=== PATIENT | male | born 1970 | race Caucasian/White ===

== ENCOUNTER 2020-05-17 15:49 | Outpatient (REF) | payer SELFPAY ==
[2020-05-17 18:32] LABS: Syphilis Screen Nonreactive (Nonreactive)
[2020-05-18 04:32] LABS: HIV AB/AG Nonreactive (Nonreactive); HIV Num 1 0.08 S/CO (0.00-0.99)
[2020-05-18 18:28] LABS: Herpes Simplex Type 2 IgG <0.90 index
[2020-05-22 22:37] LABS: Chlamydia Pneumoniae IgA <1:16 titer (<1:16); Chlamydia Pneumoniae IgM <1:10 titer (<1:10); Chlamydia Psittaci IgA <1:16 titer (<1:16); Chlamydia Psittaci IgG <1:64 titer (<1:64); Chlamydia Psittaci IgM <1:10 titer (<1:10); Chlamydia Trachomatis IgA <1:16 titer (<1:16); Chlamydia Trachomatis IgG <1:64 titer (<1:64); Chlamydia Trachomatis IgM <1:10 titer (<1:10)
== END 2020-05-17 15:50 | disposition home or self-care (01) ==
LOC: HO.LAB 15:49
PROVIDERS: PCP Internal Medicine Medical Oncology; Visit Provider Internal Medicine Medical Oncology
DX: Z11.3 Encounter for screening for infections with a predominantly sexual mode of transmission (principal)
CPT/HCPCS: 86631; 86632; 86695; 86696; 86780; 87389

== ENCOUNTER 2021-12-29 08:23 | Outpatient (REF) | payer BC, SELFPAY ==
[2021-12-29 08:34] LABS: MANUAL DIFF FLAG NO
[2021-12-29 08:44] LABS: Basophils Absolute Auto 0.1 X10*3/uL (0.0-0.2); Basophils Percent Auto 1.2 % (0-2); Eosinophils Absolute Auto 0.1 X10*3/uL (0.0-0.4); Eosinophils Percent Auto 2.4 % (0-4); Hematocrit 39.7 % (42.0-52.0); Hemoglobin 13.6 g/dl (14.0-18.0); Imm Gran Abs Auto 0.01 X10*3/uL (0.00-0.03); Imm Gran Pct Auto 0.2 % (0.0-0.4); Lymphocytes Absolute Auto 1.6 X10*3/uL (1.2-4.9); Lymphocytes Percent Auto 30.8 % (20-40); Mean Corpuscular HGB Conc 34.3 g/dl (31.0-36.0); Mean Corpuscular Hemoglobin 31.1 pg (27.0-33.0); Mean Corpuscular Volume 90.8 fL (80.0-98.0); Mean Platelet Volume 8.8 fL (9.4-12.4); Monocytes Absolute Auto 0.4 X10*3/uL (0.1-1.2); Neutrophils Absolute Auto 2.9 x10*3/uL (2.0-8.3); Neutrophils Percent Auto 57.4 % (45-73); Platelet Count 213 X10*3/uL (160-400); Red Blood Count 4.37 X10*6/uL (4.60-5.80); Red Cell Distribution Width 12.5 % (11.0-16.0)
[2021-12-29 09:14] LABS: Alanine Aminotransferase 32 U/L (0-40); Albumin Level 4.8 g/dL (3.5-5.0); Alkaline Phosphatase 71 U/L (39-117); Anion Gap 15 (12-20); Aspartate Amino Transferase 29 U/L (5-37); Bilirubin Total 0.6 mg/dL (0.0-1.0); Blood Urea Nitrogen 11 mg/dL (9-16); Calcium 9.3 mg/dL (8.4-10.2); Carbon Dioxide 28 mmol/L (22-29); Chloride 96 mmol/L (96-108); Cholesterol 203 mg/dL; Estimated Glomerular Filt Rate > 60; Glucose Fasting 88 mg/dL (60-99); HDL Cholesterol 59 mg/dL; LDL Cholesterol Calculated 122 mg/dl; Potassium 4.9 mmol/L (3.3-5.1); Sodium 134 mmol/L (135-145); Total Protein 7.5 g/dL (6.5-8.0); Triglycerides 113 mg/dL
== END 2021-12-29 08:24 | disposition home or self-care (01) ==
LOC: HO.LAB 08:23
PROVIDERS: PCP Internal Medicine Medical Oncology; Visit Provider Internal Medicine Medical Oncology
DX: E66.3 Overweight (principal); E78.5 Hyperlipidemia, unspecified
CPT/HCPCS: 36415; 80053; 80061; 85025

== ENCOUNTER 2022-04-05 09:18 | Outpatient (REF) | payer BC, SELFPAY ==
--- NOTE | ~2022-04-05 | US_ITS ---
EXAMINATION: US ABDOMEN COMPLETE CLINICAL INFORMATION: Calculus of gallbladder with chronic cholecystitis without obstruction. COMPARISON: X-ray 08/04/2014. Ultrasound abdomen 06/08/2014 and 12/27/2006. TECHNIQUE: Real-time imaging of the abdominal viscera. FINDINGS: PANCREAS: Is unremarkable but the tail is obscured by bowel gas ABDOMINAL AORTA: The proximal, mid, and distal segments are normal in caliber. INFERIOR VENA CAVA: Visualized portions are normal. LIVER: Normal. The liver is normal in size. The liver contour is normal. Parenchymal echogenicity is normal. No focal hepatic lesion. There is no intrahepatic biliary duct dilatation seen. GALLBLADDER: Normal. The gallbladder is physiologically distended without evidence of stones, sludge, polyps, wall thickening or pericholecystic fluid. COMMON BILE DUCT: Normal in caliber measuring 0.5 cm in diameter. RIGHT KIDNEY: Normal. No hydronephrosis. No renal calculi or focal parenchymal lesions. The kidney measures 11.7 cm in maximum dimension. LEFT KIDNEY: Normal. No hydronephrosis. No renal calculi or focal parenchymal lesions. The kidney measures 13.2 cm in maximum dimension. SPLEEN: Not seen FREE FLUID: None. US/US abdomen complete IMPRESSION: No abnormal findings. Nonvisualization of spleen
== END 2022-04-05 09:19 | disposition home or self-care (01) ==
LOC: HO.US 09:18
PROVIDERS: Visit Provider Internal Medicine Medical Oncology
DX: K80.10 Calculus of gallbladder with chronic cholecystitis without obstruction (principal)
CPT/HCPCS: 76700

== ENCOUNTER 2022-06-30 07:44 | Day surgery (SDC) | payer BC, SELFPAY ==
[2022-06-30 08:11] VITALS: BMI 26.5
[2022-06-30 08:15] VITALS: BP 159/104; PULSE 68; RESP 16; TEMP 36.6; O2SAT 98
--- NOTE | 2022-06-30 08:26 | P.CONAN_ITS ---
HPI - Anesthesia Eval Consult details Narrative: 51 yo male patient for colonoscopy FOR[facility]LY [facility] Past Medical History Medical History Degenerative disc disease, lumbar Hiatal hernia HTN (hypertension) Hyperlipidemia Family History Family history of problems with anesthesia: No Surgical History Surgical History History of back surgery History of Problems with Anesthesia: No Social History Social History (Updated 06/30/22 @ 09:18 by Estrella Kemp MD) Alcohol intake: current Patient Tobacco Use Status: Never used Tobacco Use of substances other than those prescribed or required for medical reasons: Yes Substance Use Type: Marijuana Last Used Substance: Hours (ago) Are you DNR?: No Advance Directives: No Advance Directives Information Provided: Yes Meds Allergies Allergy/AdvReac Type Severity Reaction Status Date / Time No Known Allergies Allergy Unverified 02/05/20 14:51 [No Known Allergies*] Active Medications: Current Medications Lactated Ringer's (Lr) 1,000 mls @ 50 mls/hr IVCONT .Q20H [facility] Home Medications Medication Instructions Recorded Confirmed Last Taken Type hydrochlorothiazide 25 mg tablet 1 tab PO QAM 06/29/22 06/29/22 Unknown History metoprolol tartrate 25 mg tablet 1 tab PO BID 06/29/22 06/29/22 06/30/22 History Exam Exam Date and Time: June 30, 2022 0826 Height,Weight and Vital Signs: Height 5 ft 10 in Weight 83.915 kg Last Vital Signs Temp 97.9 F 06/30/22 08:15 Pulse 68 06/30/22 08:15 Resp 16 06/30/22 08:15 BP 159/104 H 06/30/22 08:15 Pulse Ox 98 06/30/22 08:15 O2 Del Method 06/30/22 08:15 Airway Mallampati Class: II TM Dist: >3cm Neck ROM: Full Loose/Missing/Broken Teeth: Yes (Missing 1 tooth top right) Heart: RRR Lungs: CTAB Assessment and Plan Assessment Anesthesia Assessment: Anesthesia Plan Discussed and Chart Reviewed Final Anesthetic Review Family History of Problems with Anesthesia: No History of Problems with Anesthesia: No NPO: Yes ASA Class: II Final Preanesthetic Review: No Changes in Pt Med Stat, Meds/Allgs Chart Reviewed, Consent Obtained/Reviewed and Anes Risks/Benef Reviewed Patient Risk: Low Procedure Risk: Low Assessment/Block/Sedation in SS: Assess/Block/Sedation-SS Anesthetic Plan Anesthetic Plan: MAC: Disposition: Standard PACU
[2022-06-30] MEDS: Lactated Ringers 1,000 ML 50 ML IVCONT (08:28)
--- NOTE | 2022-06-30 09:24 | MHC.SHP ---
Pre-Procedural Eval Section A Date of Service: 06/30/22 Section B Chief Complaint: screening Details of Present Illness: see H&P no changes Relevant Family History (Specify if Yes): No Relevant Social History: None Present Medications: see Short Stay Collaborative assessment Medical History: No relevant PMH History of Previous Operations: No relevant previous surgery Allergies: Allergies Allergy/AdvReac Type Severity Reaction Status Date / Time No Known Allergies Allergy Unverified 02/05/20 14:51 [No Known Allergies*] Review of Systems Sugical H&P ROS: Negative: Constitution, Cardiovascular, Respiratory, Neurological, Psychiatric, Hem-Onc, Allergic/Immunologic, Gastrointestinal, Genitourinary, Musculoskeletal, Integumentary, Endocrine and Eyes/Ears/Nose/Throat Exam Surgical H&P Exam: Normal: HEENT, Normal: Heart, Normal: Lungs, Normal: Extremities, Normal: Abdomen, Normal: Skin and Normal: Neurological Plan Diagnosis/Plan: Unchanged I have reviewed the history and physical and performed a pertinent physical examination on my patient. No changes have occurred unless specified. Time Spent With Patient Time: Total time managing care of this patient today ____ minutes.
--- NOTE | 2022-06-30 09:44 | PM.OP ---
Brief Operative Note Date of Service: 06/30/22 Pre-op diagnosis: screening Post-op diagnosis: same Procedure: colonosocpy Surgeon: Blaise Moses Anesthesia: MAC Was an Senior Enterprise Architect used for this Procedure?: No Estimated blood loss (mL): 2 Pathology: other Condition: stable Disposition: PACU
[2022-06-30 09:49] VITALS: BP 117/75; PULSE 61; RESP 18; TEMP 36.2; O2SAT 99
[2022-06-30 10:04] VITALS: BP 131/86; PULSE 61; RESP 18; TEMP 36.2; O2SAT 98
--- NOTE | 2022-06-30 10:32 | OP_ITS ---
SURGEON: Blaise Moses MD INDICATIONS: Colon cancer screening. PREOPERATIVE DIAGNOSIS: POSTOPERATIVE DIAGNOSIS: PROCEDURE PERFORMED: Colonoscopy to the terminal ileum with biopsy. ESTIMATED BLOOD LOSS: COMPLICATIONS: ANESTHESIA: Monitored anesthesia care. ASSISTANTS: SPECIMENS: PROCEDURE DESCRIPTION: The procedure was performed on 06/30/2022. A history and physical performed. Risks and benefits of the procedure were explained to the patient. Informed consent was obtained. The patient was placed in the left lateral decubitus position. A digital rectal exam was performed and was found to be normal. The Olympus pediatric video colonoscope was introduced into the rectum and advanced to the cecum without difficulty. The cecum was identified by transillumination, palpation, and identification of ileocecal valve. Examination was performed. The scope was removed. He tolerated the procedure well and returned to recovery area in stable condition. FINDINGS: The terminal ileum was examined and appeared normal. The visualized colonic mucosa was normal. The quality of prep was good. At 45 cm from the anal verge was a less than 5 mm sessile polyp, which was removed with biopsy forceps. No other polyps were identified. Retroflexed examination showed hypertrophic anal papillae. IMPRESSION: Colon polyp. RECOMMENDATION: Follow up the biopsy results. MD KATIA Alvarez/TERI / [id number]
== END 2022-06-30 10:29 | disposition home or self-care (01) ==
PROVIDERS: PCP Internal Medicine Medical Oncology; Visit Provider Internal Medicine Gastroenterology
PROC: 0DJD8ZZ Inspection of Lower Intestinal Tract, Via Natural or Artificial Opening Endoscopic (ICD-10-PCS; CPT 45378; principal; 2022-06-30 09:00)
DX: Z12.11 Encounter for screening for malignant neoplasm of colon (principal); K63.5 Polyp of colon; K62.89 Other specified diseases of anus and rectum; K44.9 Diaphragmatic hernia without obstruction or gangrene; I10 Essential (primary) hypertension; E78.5 Hyperlipidemia, unspecified; Z79.899 Other long term (current) drug therapy
CPT/HCPCS: 45380; 88305

== ENCOUNTER 2022-09-13 08:26 | Outpatient (REF) | payer BC, SELFPAY | END 2022-09-13 08:27 | disposition home or self-care (01) | LOC: HO.LNP 08:26 | PROVIDERS: PCP Internal Medicine Medical Oncology; Referring Provider Internal Medicine Medical Oncology; Visit Provider Surgery | DX: L72.3 Sebaceous cyst (principal); L08.9 Local infection of the skin and subcutaneous tissue, unspecified; Z79.899 Other long term (current) drug therapy | CPT/HCPCS: 10060; 10061; 87070; 87077; 87186; 87205 ==

== ENCOUNTER → 2022-09-14 08:52 | Outpatient (BNVA) | payer BC, SELFPAY | PROVIDERS: PCP Internal Medicine Medical Oncology; Visit Provider Surgery | DX: Z13.89 Encounter for screening for other disorder (principal) ==

== ENCOUNTER → 2022-09-15 08:56 | Outpatient (BNVA) | payer BC, SELFPAY | PROVIDERS: PCP Internal Medicine Medical Oncology; Visit Provider Surgery | DX: Z13.89 Encounter for screening for other disorder (principal) ==

== ENCOUNTER → 2022-09-18 08:59 | Outpatient (BNVA) | payer BC, SELFPAY | PROVIDERS: PCP Internal Medicine Medical Oncology; Visit Provider Surgery | DX: Z13.89 Encounter for screening for other disorder (principal) ==

== ENCOUNTER → 2022-09-25 12:57 | Outpatient (BNVA) | payer BC, SELFPAY | PROVIDERS: PCP Internal Medicine Medical Oncology; Visit Provider Surgery ==

== ENCOUNTER 2022-10-05 07:02 | Outpatient (REF) | payer BC, SELFPAY ==
[2022-10-05 07:13] LABS: MANUAL DIFF FLAG NO
[2022-10-05 07:23] LABS: Basophils Percent Auto 0.8 % (0-2); Eosinophils Absolute Auto 0.2 X10*3/uL (0.0-0.4); Eosinophils Percent Auto 2.8 % (0-4); Hematocrit 41.3 % (42.0-52.0); Hemoglobin 14.2 g/dl (14.0-18.0); Imm Gran Abs Auto 0.01 X10*3/uL (0.00-0.03); Imm Gran Pct Auto 0.2 % (0.0-0.4); Lymphocytes Absolute Auto 1.4 X10*3/uL (1.2-4.9); Lymphocytes Percent Auto 26.9 % (20-40); Mean Corpuscular HGB Conc 34.4 g/dl (31.0-36.0); Mean Corpuscular Hemoglobin 30.9 pg (27.0-33.0); Mean Platelet Volume 8.7 fL (9.4-12.4); Monocytes Absolute Auto 0.5 X10*3/uL (0.1-1.2); Monocytes Percent Auto 9.7 % (2-11); Neutrophils Absolute Auto 3.1 x10*3/uL (2.0-8.3); Neutrophils Percent Auto 59.6 % (45-73); Platelet Count 239 X10*3/uL (160-400); Red Blood Count 4.59 X10*6/uL (4.60-5.80); Red Cell Distribution Width 12.1 % (11.0-16.0); White Blood Count 5.3 X10*3/uL (4.8-10.8)
[2022-10-05 07:56] LABS: Alanine Aminotransferase 37 U/L (0-40); Albumin Level 4.6 g/dL (3.5-5.0); Alkaline Phosphatase 81 U/L (39-117); Anion Gap 14 (12-20); Aspartate Amino Transferase 35 U/L (5-37); Bilirubin Total 0.5 mg/dL (0.0-1.0); Blood Urea Nitrogen 8 mg/dL (9-16); Calcium 9.3 mg/dL (8.4-10.2); Carbon Dioxide 30 mmol/L (22-29); Chloride 95 mmol/L (96-108); Cholesterol 194 mg/dL; Estimated Glomerular Filt Rate > 60; Glucose Fasting 92 mg/dL (60-99); HDL Cholesterol 55 mg/dL; LDL Cholesterol Calculated 102 mg/dl; Potassium 4.5 mmol/L (3.3-5.1); Sodium 134 mmol/L (135-145); Total Protein 7.3 g/dL (6.5-8.0); Triglycerides 187 mg/dL
[2022-10-05 08:13] LABS: Prostate Specific Antigen 0.57 ng/mL (<0.05-4.0)
== END 2022-10-05 07:03 | disposition home or self-care (01) ==
LOC: HO.LAB 07:02
PROVIDERS: PCP Internal Medicine Medical Oncology; Visit Provider Internal Medicine Medical Oncology
DX: Z12.5 Encounter for screening for malignant neoplasm of prostate (principal); E78.5 Hyperlipidemia, unspecified; N40.0 Benign prostatic hyperplasia without lower urinary tract symptoms; M47.27 Other spondylosis with radiculopathy, lumbosacral region; I10 Essential (primary) hypertension
CPT/HCPCS: 36415; 80053; 80061; 84153; 85025

== ENCOUNTER 2023-02-20 21:03 | Outpatient (REF) | payer BC, SELFPAY | END 2023-02-20 21:04 | disposition home or self-care (01) | LOC: HO.LNP 21:03 | PROVIDERS: Visit Provider Internal Medicine Medical Oncology | DX: H00.015 Hordeolum externum left lower eyelid (principal) | CPT/HCPCS: 87070; 87205 ==

== ENCOUNTER 2023-06-12 07:51 | Outpatient (REF) | payer BC, SELFPAY ==
[2023-06-12 08:17] LABS: MANUAL DIFF FLAG NO
[2023-06-12 08:37] LABS: Basophils Percent Auto 0.3 % (0-2); Eosinophils Absolute Auto 0.1 X10*3/uL (0.0-0.4); Eosinophils Percent Auto 0.6 % (0-4); Hematocrit 42.6 % (42.0-52.0); Hemoglobin 15.1 g/dl (14.0-18.0); Imm Gran Abs Auto 0.03 X10*3/uL (0.00-0.03); Imm Gran Pct Auto 0.3 % (0.0-0.4); Lymphocytes Absolute Auto 1.6 X10*3/uL (1.2-4.9); Lymphocytes Percent Auto 14.5 % (20-40); Mean Corpuscular HGB Conc 35.4 g/dl (31.0-36.0); Mean Corpuscular Hemoglobin 31.3 pg (27.0-33.0); Mean Corpuscular Volume 88.4 fL (80.0-98.0); Mean Platelet Volume 8.9 fL (9.4-12.4); Monocytes Absolute Auto 0.7 X10*3/uL (0.1-1.2); Monocytes Percent Auto 6.6 % (2-11); Neutrophils Absolute Auto 8.4 x10*3/uL (2.0-8.3); Neutrophils Percent Auto 77.7 % (45-73); Platelet Count 229 X10*3/uL (160-400); Red Blood Count 4.82 X10*6/uL (4.60-5.80); Red Cell Distribution Width 11.8 % (11.0-16.0); White Blood Count 10.9 X10*3/uL (4.8-10.8)
[2023-06-12 09:08] LABS: Alanine Aminotransferase 57 U/L (0-40); Albumin Level 4.9 g/dL (3.5-5.0); Alkaline Phosphatase 77 U/L (39-117); Anion Gap 15 (12-20); Aspartate Amino Transferase 41 U/L (5-37); Bilirubin Total 1.1 mg/dL (0.0-1.0); Blood Urea Nitrogen 11 mg/dL (9-16); Calcium 9.8 mg/dL (8.4-10.2); Carbon Dioxide 30 mmol/L (22-29); Chloride 94 mmol/L (96-108); Cholesterol 186 mg/dL (<200); Estimated Glomerular Filt Rate > 60; Glucose Fasting 101 mg/dL (60-99); HDL Cholesterol 63 mg/dL (>40); LDL Cholesterol Calculated 101 mg/dL (<100); Potassium 4.5 mmol/L (3.3-5.1); Sodium 134 mmol/L (135-145); Total Protein 8.1 g/dL (6.5-8.0); Triglycerides 112 mg/dL (<150)
[2023-06-13 21:38] LABS: Lyme Abs Screen <0.90 index
== END 2023-06-12 07:52 | disposition home or self-care (01) ==
LOC: HO.LAB 07:51
PROVIDERS: PCP Internal Medicine Medical Oncology; Visit Provider Internal Medicine Medical Oncology
DX: E78.5 Hyperlipidemia, unspecified (principal); I10 Essential (primary) hypertension; T14.8XXS Other injury of unspecified body region, sequela; W57.XXXS Bitten or stung by nonvenomous insect and other nonvenomous arthropods, sequela
CPT/HCPCS: 36415; 80053; 80061; 85025; 86617; 86618

== ENCOUNTER 2024-10-29 16:53 | Outpatient (REF) | payer BC, SELFPAY ==
--- OUTSIDE RECORDS SUMMARY | 2024-10-29 18:23 | XMS_ITS ---
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 Up Name Role Phone Heriberto Mcgill Primary Care Provider [phone] Allergies Allergen (clinical drug ingredient) Drug/Non Drug Allergy documented on EMR Reaction Allergy Type Onset Date Status Bee Sting Unknown Allergy Active REASON FOR VISIT annual exam Medications Medication SIG (Take, Route, Frequency, Duration) Notes Start Date End Date Status Metoprolol Tartrate 50 MG TAKE 1 TABLET BY MOUTH TWICE DAILY WITH FOOD Active hydroCHLOROthiazide 25 MG TAKE 1 TABLET BY MOUTH EVERY DAY IN THE MORNING Active Tadalafil 20 MG 1 tablet as needed O rally Once a day 2023 Active EPINEPHrine 0.3 MG/0.3ML USE DIRECTED NEEDED FOR BEE STING Active Multi-Vitamin - 1 tablet Orally Once a day Active Social History Tobacco Use: Social History Observation Description Date Details (start date - stop date) Never Smoker NA - NA Sex Assigned At : Social History Observation Description Sex Assigned At Male Tobacco Use/Smoking Question Answer Notes Patient is a nonsmoker Additional Findings: Tobacco Non-User Aggressive non-smoker Encounters Encounter Location Date Provider Diagnosis Heriberto Mcgill III, MD [address] [place] [address] [place] [phone] 06/23/2024 Heriberto Mcgill Overweight (BMI 25.0-29.9) E66.3 Assessments Encounter Date Diagnosis (ICD Code) Assessment Notes Treatment Notes Treatment Clinical Notes 06/23/2024 Overweight (BMI 25.0-29.9) (ICD-10 - E66.3) His body mass index is 25.6. We formulated a plan to lose weight at a rate of one half of a pound per week through a diet restricted in fat calories and sodium combined with regular activity. Plan Of Treatment Medication Medication Name Sig Start Date Stop Date Notes Metoprolol Tartrate 50 MG TAKE 1 TABLET BY MOUTH TWICE DAILY WITH FOOD hydroCHLOROthiazide 25 MG TAKE 1 TABLET BY MOUTH EVERY DAY IN THE MORNING Tadalafil 20 MG 1 tablet as needed O rally Once a day 2023 EPINEPHrine 0.3 MG/0.3ML USE DIRECTED NEEDED FOR BEE STING Multi-Vitamin - 1 tablet Orally Once a day Next Appt Details Provider Name:Heriberto Mcgill, 10/30/2024 09:00:00 AM, [address] [facility] [address], [place], [id number], Provider Name:Heriberto Mcgill, 02/06/2025 03:15:00 PM, [address] [place] [address] [address], [place], [phone], Progress Notes * Ronald PEREZDOB: [birth year] (53 yo M)Acc No.[id number]:06/23/2024 Progress Notes Patient:?CHRIS Ronald Provider:?Heriberto Mcgill MD :1970???Age:53 Y???Sex:Male Corby e:06/23/2024 Address:[address] [place], [place] [id number] Subjective: * Chief Complaints: * ???1. Annual exam. * HPI: ???COVID-19 Screening:?Questions?Have you had any new onset fever, chills, cough, congestion, sore throat, shortness of breath, muscle aches??No * ROS:?General/Constitutional:?pain?only normal aches and pains.?Chills?denies.?Fatigue?admits.?Fever?denies.?ENT:?Decreased hearing?denies.?Respiratory:?Cough?denies.?Cardiovascular:?Chest pain with exertion?denies.?Dyspnea on exertion?denies.?Shortness of breath?denies.?Gastrointestinal:?Constipation?denies.?Decreased appetite?denies.?Diarrhea?denies.?Heartburn?denies.?Nausea?denies.?Rectal bleeding?denies.?Vomiting?denies.?Hematology:?bruising?denies.?petechiae?denies.?Swollen glands?none have been noted.?Genitourinary:?Frequent urination?denies.?Musculoskeletal:?Muscle aches?denies.?Painful joints?denies.?Sciatica?denies.?Weakness?denies.?Skin:?Itching?denies.?Rash?denies.?Skin lesion(s)?denies.?Neurologic:?Difficulty speaking?denies.?Dizziness?denies.?Headache?denies.?Low back pain?denies.?Psychiatric:?Depressed mood?denies.? 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 * Surgical History:?L4-L5 disc ectomy 12/2002, electrode dissection genital warts penile shaft and scrotum [phone], disectomy [facility] 03/2021, Colonoscopy, Dr. Heriberto Lao, [facility], one hyperplastic polyp 06/2022, Excision infected sebaceous cyst, lower back, [facility] 09/2022. * Hospitalization/Major Diagno stic Procedure:?Denies Past Hospitalization. * Family History:?Father: alijudith e 78 yrs, Hypertension, coronary artery disease, diagnosed with CVD, HTN.?Mother: alive 76 yrs, Healthy and well.?1 brother(s) , 1 sister(s) - healthy. .? He is single, never and has no children. He is working. He has one brother who is healthy and well. His sister is healthy and well. He is not aware of any family history of mental illness, substance use disorder or dictation. * Social History:?Tobacco Use:?Tobacco Use/Smoking?Patient is a?nonsmoker ?Additional Findings: Tobacco Non-User?Aggressive non-smoker ???He is single and never with no children. 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 His only toxic exposure is fiberglass. * Medications:?Taking EPINEPHr ine 0.3 MG/0.3ML Solution Auto-injector USE DIRECTED NEEDED FOR BEE STING , Taking Multi-Vitamin - Tablet 1 tablet Orally Once a day , Taking Tadalafil 20 MG Tablet 1 tablet as needed Orally Once a day , stop date 11/07/2024, Taking hydroCHLOROthiazide 25 MG Tablet TAKE 1 TABLET BY MOUTH EVERY DAY IN THE MORNING , Taking Metoprolol Tartrate 50 MG Tablet TAKE 1 TABLET BY MOUTH TWICE DAILY WITH FOOD , Medication List reviewed and reconciled with the patient * Allergies:?Bee Sting. Objective: * Vitals:? * Examination: ???General Examination: ?GENERAL APPEARANCE:?pleasant, well nourished, well developed, in no acute distress, calm and relaxed.?HEAD:?atraumatic, normocephalic.?EYES:?eomi, perrla, anicteric, conjugate.?EARS:?normal.?NOSE:?septum intact.?ORAL CAVITY:?normal, unremarkable.?NECK/THYROID:?no jugular venous distention, no carotid bruit, thyroid normal.?LYMPH NODES:?no enlarged lymph nodes,spleen normal.?SKIN:?no suspicious lesions, anicteric.?HEART:?no clicks, gallops, murmurs, or rubs, regular rhythm, S1, S2 normal, no s3, or vascular bruits.?LUNGS:?clear to auscultation .?BREASTS:??no masses palpable bilaterally.?ABDOMEN:?bowel sounds normal, no ascites, no organomegaly, no mass.?RECTAL EXAM:?not examined.?MUSCULOSKELETAL:?extremities unremarkable, no clubbing, cyanosis or edema.?PERIPHERAL PULSES:?normal.?NEUROLOGIC:?alert and oriented, cranial nerves 2-12 grossly intact, deep tendon reflexes 2+ symmetrical, motor strength normal upper and lower extremities, sensory exam intact.?PSYCH:?alert, oriented.? Assessment: * Assessment: 1.?Overweight (BMI 25.0-29.9 ) - E66.3???Notes :His body mass index is 25.6. We formulated a plan to lose weight at a rate of one half of a pound per week through a diet restricted in fat calories and sodium combined with regular activity.??? Plan: * Treatment: 2.?Others? Continue Metoprolol Tartrate Tablet, 50 MG, TAKE 1 TABLET BY MOUTH TWICE DAILY WITH FOOD;?Continue hydroCHLOROthiazide Tablet, 25 MG, TAKE 1 TABLET BY MOUTH EVERY DAY IN THE MORNING;?Continue Tadalafil Tablet, 20 MG, 1 tablet as needed, Orally, Once a day;?Continue EPINEPHrine Solution Auto-injector, 0.3 MG/0.3ML, USE DIRECTED NEEDED FOR BEE STING.?? * Images: * The named appointment provid er may or may not be the originator of this progress note, and it is not deemed complete until electronically signed by the appointment provider. Sign off status: Pending * Provider:?Heriberto Mcgill MD Date:?07/2024 Generated for Herminio ochoa/Gabo/Piaitting on:?10/29/2024 06:22 PM EDT History and Physical Notes * HPI (History of Present Illness) Category Sub-Category Detail Notes COVID-19 Screening Questions Have you had any new onset fever, chills, cough, congestion, sore throat, shortness of breath, muscle aches?: No Examination Category Sub-Category Detail Notes General Examination GENERAL APPEARANCE: pleasant , well nourished, well developed, in no acute distress, calm and relaxed HEAD: atraumatic, normocep halic EYES: eomi, perrla, anicte justin, conjugate EARS: normal NOSE: septum intact NECK/THYROID: no jugular venous di stention, no carotid bruit, thyroid normal HEART: no clicks, gallops, murmurs, or rubs, regular rhythm, S1, S2 normal, no s3, or vascular bruits LUNGS: clear to auscultatio n ABDOMEN: bowel sounds normal, no ascites, no organomegaly, no mass NEUROLOGIC: alert and oriented, cranial nerves 2-12 grossly intact, deep tendon reflexes 2+ symmetrical, motor strength normal upper and lower extremities, sensory exam intact SKIN: no suspicious lesion s, anicteric PERIPHERAL PULSES: normal BREASTS: no masses palpable b ilaterally MUSCULOSKELETAL: extremities unremark able, no clubbing, cyanosis or edema LYMPH NODES: no enlarged lymph no lexus,spleen normal RECTAL EXAM: not examined PSYCH: alert, oriented ORAL CAVITY: normal, unremarkable
== END 2024-10-29 16:54 | disposition home or self-care (01) ==
LOC: HO.LNP 16:53
PROVIDERS: Visit Provider Internal Medicine Medical Oncology
DX: R60.0 Localized edema (principal)
CPT/HCPCS: 87070; 87205